=== PATIENT | female | born 1970 | race Caucasian/White ===

== ENCOUNTER → 2016-06-25 | Outpatient (REF) ==
[~2016-06-25] MED LIST: LUNESTA 1MG TAB1 MG; NORCO 325 MG-51 TAB PO; PERCOCET 325 MG1 TA2 PO
== END ==
LOC: WSOH 08:00
DX: Z01.89 Encounter for other specified special examinations (principal)

== ENCOUNTER → 2016-06-27 | Outpatient (CLI) | payer BC | LOC: MC.RAD 13:31 | DX: Z12.31 Encounter for screening mammogram for malignant neoplasm of breast (principal) ==

== ENCOUNTER → 2016-08-30 | Outpatient (CLI) | payer BC ==
[2016-08-30 15:08] LABS: MEAN CELL VOLUME 96 fl (80.0-100.0); MEAN CORPUSCULAR HGB CONC 33 g/dl (33.0-37.0); PLATELET COUNT 211 K/mm3 (130-400); RED BLOOD COUNT 2.94 M/mm3 (4.10-5.30); REDCELL DISTRIBUTION WIDTH-CV 13.3 % (11.5-14.5); WHITE BLOOD COUNT 13.4 K/mm3 (4.8-10.8)
[2016-08-30 15:09] LABS: ADD PATHOLOGY DIFF REVIEW NO; HEMATOCRIT 28.2 % (37.0-47.0); HEMOGLOBIN 9.4 g/dl (12.5-16.0); MEAN CORPUSCULAR HEMOGLOBIN 32 pg (27.0-31.0)
[2016-08-30 15:26] LABS: BAND 7 % (0-10); EOSINOPHIL 1 % (0-4); NEUTROPHILS 88 % (42.0-75.2); PLATELET ESTIMATE NORMAL (NORMAL); TOTAL CELLS COUNTED 100
== END ==
LOC: ZCOL.LAB 14:38
PROVIDERS: Obstetrics & Gynecology
DX: Z90.710 Acquired absence of both cervix and uterus (principal)

== ENCOUNTER → 2017-05-22 | Outpatient (CLI) | payer BC | LOC: COL.RAD 08:15 | DX: K21.9 Gastro-esophageal reflux disease without esophagitis (principal); R05 Cough; R11.0 Nausea ==

== ENCOUNTER → 2017-05-28 | Outpatient (CLI) | payer BC | LOC: COL.RAD 10:21 | DX: K82.8 Other specified diseases of gallbladder (principal) | CPT/HCPCS: A9537 ==

== ENCOUNTER → 2018-07-29 | Outpatient (CLI) | payer BC | LOC: COL.RAD 09:45 | DX: S32.2XXA Fracture of coccyx, initial encounter for closed fracture (principal) ==

== ENCOUNTER → 2018-09-09 | Outpatient (CLI) | payer BC | LOC: MHCPAIN 10:14 | DX: G89.29 Other chronic pain (principal); M53.3 Sacrococcygeal disorders, not elsewhere classified | CPT/HCPCS: G0463 ==

== ENCOUNTER → 2019-10-07 | Outpatient (CLI) | payer BC | LOC: MC.RAD 08:51 | DX: Z12.31 Encounter for screening mammogram for malignant neoplasm of breast (principal); Z98.82 Breast implant status ==